=== PATIENT | female | born 1945 | race Caucasian/White ===

== ENCOUNTER 2018-02-20 12:25 | Outpatient (CLI) | payer MEDICARE | END 2018-02-20 12:26 | disposition home or self-care (01) | LOC: BICMAMMO 12:25 | PROVIDERS: ATTEND Nurse Practitioner | DX: Z12.31 Encounter for screening mammogram for malignant neoplasm of breast (principal); Z80.3 Family history of malignant neoplasm of breast; Z85.528 Personal history of other malignant neoplasm of kidney | CPT/HCPCS: 77063; 77067 ==

== ENCOUNTER 2019-03-19 12:41 | Outpatient (CLI) | payer MEDICARE ==
--- NOTE | 2019-03-19 14:04 | MMO ---
Bilateral MAMMO Bilat Screen DDI+CRIS. CLINICAL HISTORY: Patient is 73 years old and is seen for screening. The patient has the following family history of breast cancer: mother. The patient has a history of kidney cancer. VIEWS: The views performed were: bilateral craniocaudal with tomosynthesis and bilateral mediolateral oblique with tomosynthesis. FILMS COMPARED: The present examination has been compared to prior imaging studies performed at [facility] on 02/20/2018, and at [facility] on 02/05/2014, 11/05/2014 and 09/16/2016. MAMMOGRAM FINDINGS: There are scattered fibroglandular densities. There are stable benign appearing calcifications seen in both breasts. There are no suspicious masses, suspicious calcifications, or new areas of architectural distortion. IMPRESSION: THERE IS NO MAMMOGRAPHIC EVIDENCE OF MALIGNANCY. A ROUTINE FOLLOW-UP MAMMOGRAM IN 1 YEAR IS RECOMMENDED. THE RESULTS OF THIS EXAM WERE SENT TO THE PATIENT. ACR BI-RADS Category 2 - Benign finding MAMMOGRAPHY NOTE: 1. A negative mammogram report should not delay a biopsy if a dominant of clinically suspicious mass is present. 2. Approximately 10% to 15% of breast cancers are not detected by mammography. 3. Adenosis and dense breasts may obscure an underlying neoplasm. Reported by: LUCÍA AGUIRRE MD Electonically Signed: [id number]
== END 2019-03-19 12:42 | disposition home or self-care (01) ==
LOC: BICMAMMO 12:41
PROVIDERS: ATTEND Nurse Practitioner
DX: Z12.31 Encounter for screening mammogram for malignant neoplasm of breast (principal); Z80.3 Family history of malignant neoplasm of breast; Z85.528 Personal history of other malignant neoplasm of kidney
CPT/HCPCS: 77063; 77067

== ENCOUNTER 2020-08-06 17:46 | Inpatient (IN) | payer MEDICARE ==
--- NOTE | 2020-08-06 19:26 | PDOC.HHP ---
Hospitalist HPI - History of Present Illness Right leg wound History of Present Illness: This is a 74-year-old female patient history of diabetes mellitus , right renal cancer status post nephrectomy. CVA, coronary disease status post stent, pacemaker in place presenting as an Syncope, transferred from [place] [facility] on account of diabetic foot infection. . Patient notes that she had a wound on her right foot around the big toe and also on the inferior surface about 4 days ago. She does have diabetic neuropathy and therefore does not know exactly how long the wound was in place. She however had some malaise and general unwellness. She however denies any fever, chest pain or shortness of breath. She notes having noticed distention in her abdomen over the past week and reduced renal output over the past couple of days. Her friend came in to visit her and noted that she was weak and unwell and sent her to the [place] ED where she was treated for diabetic foot ulcer and started on Zosyn and vancomycin and given IV fluids and sent here. She has a history of coronary disease with stenting and stroke about 3 years ago. She also has a pacemaker which she notes she received because she passed out At presentation her vitals were BP 155/60, pulse 83, respiratory 20, temperature 98.2, saturating 100% on room air. Labs at [place] showed CBC generally unremarkable besides mild anemia of 11.7, CMP with creatinine of 1.45 from a baseline of 1.33, CRP 11. Hemoglobin A1c was 6.92 months ago. Hospitalist ROS - Review of Systems Constitutional: reports: weakness, malaise. denies: fever, chills, sweats ENT: denies: ear pain, ear discharge Respiratory: denies: cough, dry, shortness of breath, hemoptysis Cardiovascular: denies: chest pain, palpitations, orthopnea Gastrointestinal: denies: nausea, vomiting, abdominal pain, diarrhea Genitourinary: denies: dysuria, frequency, incontinence, hematuria Neurological: denies: weakness, numbness, incoordination Hospitalist History - Past Medical History PANTS [employer]ER: reports: CVA Other Medical History: Diabetes mellitus, CVA, pacemaker placement - Past Surgical History Other Surgical History: Pacemaker placement, right kidney surgery, stent - Family History Family History: reports: no pertinent history, cancer (Mother) - Social History Smoking Status: Former smoker Alcohol: reports: None - Exam General Appearance: awake alert General - other findings: In pleasant spirits. No acute distress Eye: PERRL, anicteric sclera ENT: normocephalic atraumatic, no oropharyngeal lesions Neck: supple, symmetric, no JVD Heart: RRR, no murmur, no gallops, no rubs Respiratory: CTAB, no wheezes, no rales, no ronchi Gastrointestinal: soft, non-tender, normal bowel sounds, distended (Distended/obese. No fluid thrill however) Extremities: no cyanosis, no clubbing, no edema Extremities - other findings: Nonexudative wound in the region of distal first metatarsal. Neurological: cranial nerve grossly intact, normal sensation to touch, no weakness, no focal deficits Psychiatric: normal affect, normal behavior, A&O x 3 Hospitalist Results - Labs Lab results: . Pending Hospitalist H&P A/P - Plan Plan: This is a 74-year-old female patient with a history of diabetes mellitus, right renal cancer, CVA, coronary disease status post stent who presents with diabetic ulcer on her right foot. Diabetic foot ulcer Started on Vanco and Zosyn We will continue on Zosyn X-ray of the foot Doppler ultrasound scan Wound care Abdominal distention Unclear etiology Given her history of renal cancer and extensive family history of cancers Abdominal scan rule out organomegaly/ascites. Diabetes mellitus Start correctional insulin Monitor glucose. Hypertension Start home medication when verified. Coronary disease Resume home medications once verified History of renal cancer Status post pacemaker secondary to syncope Keep monitoring. CKD Creatinine slightly bumped up from baseline Monitor BMP Gentle rehydration VT prophylaxisLovenox CODE STATUSfull code
--- NOTE | 2020-08-06 19:58 | PDOC.FMACP ---
Advance Care Planning - Note Summary: Advanced Care Planning was discussed. The diagnosis, prognosis and goals of care were discussed. Surrogate decision maker Amna Leyva. Patient is full code
[2020-08-06] MEDS ORDERED: Dextrose 5% in Water 1,000 ML IV PRN (20:25)
[2020-08-06] MEDS ORDERED: Dextrose 50% Abboject 50 ML SYRINGE SLOW IVP PRN (20:25)
[2020-08-06] MEDS ORDERED: HumaLOG 300 UNITS/3 ML VIAL SC PRN (20:25)
[2020-08-06] MEDS: Piperacillin/Tazobactam 4.5 GM in Sodium Chloride 0.9% 100 ML IVPB SCH (23:34)
[2020-08-06] MEDS: Sodium Chloride 0.9% 1,000 ML IV SCH (23:34)
[2020-08-07 03:07] VITALS: BMI 39.3
[2020-08-07 06:28] LABS: #Eosinphils 0.2 thou/uL (0.0-0.7); #Lymphocytes 0.7 thou/uL (1.20-3.40); #Monocytes 0.4 thou/uL (0.11-0.59); #Neutrophils 6.3 thou/uL (1.40-6.50); %Basophils 0.4 % (0.0-1.0); %Eosinophils 3.1 % (0.0-10.0); %Lymphocytes 8.8 % (21.0-51.0); %Monocytes 5.6 % (0.0-10.0); %Neutrophils 82.1 % (42.0-75.0); Hemoglobin 10.3 g/dL (12.0-16.0); Mean Corpuscular HGB CONC 31.6 g/dL (32.0-36.0); Mean Corpuscular Volume 85.4 fL (78.0-98.0); Mean Platelet Volume 7.6 fL (7.4-10.4); Platelet Count 278 thou/uL (130-400); RBC Distribution Width 12.7 % (11.5-14.5); Red Blood Cell (RBC) Count 3.83 mill/uL (4.20-5.40); White Blood Cell (WBC) Count 7.7 thou/uL (4.8-10.8)
[2020-08-07 06:43] LABS: Anion Gap 15 mmol/L (10-20); BUN (Urea Nitrogen) 32 mg/dL (9.8-20.1); Calc. Creatinine Clearance 55 mL/min (70-130); Calcium 8.8 mg/dL (7.8-10.44); Carbon Dioxide 23 mmol/L (23-31); Chloride 107 mmol/L (98-107); Glucose 169 mg/dL (83-110); Sodium 141 mmol/L (136-145)
--- NOTE | 2020-08-07 08:30 | ULT ---
COMPLETE ABDOMEN ULTRASOUND: Date; 08/07/2020 INDICATION: History of abdominal distention, ascites, and organomegaly. COMPARISON: Prior CT abdomen with contrast dated 08/03/2018. FINDINGS: Overlying bowel gas slightly limits the exam. The visualized aspects of the aorta and IVC appear with in normal limits. The visualized pancreas appears within normal limits. No definite focal hepatic les ion is evident. There are numerous gallstones within the gallbladder. Right kidney measures 10.8 x 5. 3 x 4.7 cm. Right renal cortical thickness is 1.2 cm. Small cyst involving the inferior pole of the r ight kidney measuring 1.1 cm. The left kidney measures approximately 13.5 x 6.5 x 4.6 cm. There is a 1.5 cm cyst involving the inferior pole of the left kidney. Left renal cortical echogenicity is 1.1 c m. There is a 2.7 x 3.1 x 2.4 cm hypoechoic structure seen within the renal sinus, incompletely deja cterized on the current exam. The spleen measures 9.5 cm. The common bile duct measures 3.0 mm. No fr ee fluid is evident. IMPRESSION: 1. Cholelithiasis without sonographic evidence of acute cholecystitis. 2. No ascites present. 3. Hypoechoic structure seen within the renal sinus of the left mid kidney is incompletely character ized. Follow-up CT of the abdomen utilizing a renal mass protocol with and without contrast is recomm ended. Bilateral renal cysts also seen bilaterally. 4. Some limitations of exam due to overlying bowel gas. POS: PINO
[2020-08-07] MEDS: Enoxaparin Sodium 40 MG/0.4 ML SYRINGE SC SCH ×2 (09:20→12:20)
[2020-08-07] MEDS: Lisinopril 5 MG TAB PO SCH (09:30)
[2020-08-07] MEDS: Rosuvastatin 10 MG TAB PO SCH (09:30)
[2020-08-07] MEDS: Aspirin 81 mg Enteric Coated Tablet PO SCH (09:30)
[2020-08-07] MEDS: Piperacillin/Tazobactam 4.5 GM in Sodium Chloride 0.9% 100 ML IVPB SCH ×3 (09:30→23:28)
[2020-08-07] MEDS: Sodium Chloride 0.9% 1,000 ML IV SCH ×3 (09:33→23:30)
--- NOTE | 2020-08-07 11:47 | CT ---
Exam: Abdomen CT with and without contrast HISTORY: Hypoechoic mass noted in the left kidney. COMPARISON: Abdomen CT 08/03/2018 Correlation: Abdomen ultrasound 08/07/2020 TECHNIQUE: Abdomen CT is performed with and without contrast following urogram protocol. Coronal refo rmatted images are submitted for interpretation FINDINGS: Lung bases: Minimal dependent atelectatic change. Heart: Normal heart size. No significant pericardial fluid Aorta: Normal caliber. No periaortic fat stranding. Scattered atherosclerosis. Liver: Appropriate enhancement. No enhancing masses. Spleen: Appropriate enhancement Pancreas: Appropriate enhancement Adrenal glands: Left adrenal adenoma measuring 1 cm noted. Attenuation coefficient of 7 Hounsfield un its on the noncontrast images. Unremarkable right adrenal gland. Lymph nodes: No gastrohepatic, retrocrural or periportal lymphadenopathy Portal vein: Patent Gallbladder: CT evidence of cholelithiasis, without evidence of cholecystitis. Kidneys: Noncontrast: No evidence of hydronephrosis. There is scarring of the right kidney. There is a nonobst ructing calculus in the lower pole the right kidney measuring 0.6 cm. Contrast: Symmetric enhancement on the arterial phase images. There is no evidence of a enhancing mas s within the left or right renal cortex. Delayed: Symmetric excretion into a decompressed intrarenal collecting system. Visualized ureters are unremarkable. 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 The hypoechoic focus noted on the recent ultrasound likely represents renal parenchyma extending into the pelvis secondary to duplication of the intrarenal collecting system. Mesentery: No mass, nephropathy, free air or free fluid Alimentary canal: Limited evaluation of the alimentary canal due to technique. No evidence of bowel o bstruction. No lytic or blastic lesions in the osseous structures. Vacuum disc phenomenon is noted at multiple le vels. IMPRESSION: 1. No evidence of obstructive uropathy 2. No evidence of a left or right renal mass. 3. 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 There is extension of renal co rtex into the pelvis secondary to duplication which likely represents the finding noted on recent ultrasound.
[2020-08-07 12:51] LABS: SARS-CoV-2 MS2 Positive; SARS-CoV-2 N Gene Negative; SARS-CoV-2 S Gene Negative; SARS-CoV-2 by NAA Not Detected (NotDetected); SARS-CoV-2 orf1ab Negative
--- NOTE | 2020-08-07 13:02 | PDOC.HOSPP ---
- Objective Vital Signs & Weight: Vital Signs (12 hours) Temp Pulse Resp BP Pulse Ox 08/07/20 11:38 98.1 F 84 16 139/64 96 08/07/20 09:30 83 08/07/20 07:29 98.5 F 83 16 140/65 93 L Weight Weight 229 lb 4.8 oz Result Diagrams: 08/07/20 06:14 08/07/20 06:14 Additional Labs: Accuchecks 08/07/20 08/07/20 11:44 01:09 POC Glucose 125 H 182 H Hospitalist ROS - Medication Medications: Active Medications Generic Name Dose Route Start Last Admin Trade Name Freq PRN Reason Stop Dose Admin Aspirin 81 mg 08/07/20 09:00 08/07/20 09:30 Aspirin 81 Mg Enteric Coated Tablet PO 81 mg DAILY MOOK Administration Enoxaparin Sodium 40 mg 08/07/20 09:00 08/07/20 12:20 Enoxaparin Sodium 40 Mg/0.4 Ml Syringe SC Not Given 0900 MOOK Sodium Chloride 1,000 mls @ 75 mls/hr 08/06/20 20:30 08/07/20 09:33 Normal Saline 0.9% IV Not Given .[id number] MOOK Piperacillin Sod/Tazobactam 100 mls @ 200 mls/hr 08/06/20 23:59 08/07/20 09:30 Sod 4.5 gm/ Sodium Chloride IVPB 100 mls 0800,1600,2359 MOOK Administration Lisinopril 5 mg 08/07/20 09:00 08/07/20 09:30 Lisinopril 5 Mg Tab PO 5 mg DAILY MOOK Administration Rosuvastatin Calcium 10 mg 08/07/20 09:00 08/07/20 09:30 Rosuvastatin 10 Mg Tab PO 10 mg DAILY MOOK Administration Hosp A/P - Plan 74-year-old female patient with a history of diabetes mellitus, right renal cancer, CVA, coronary disease status post stent who presents with diabetic ulcer on her right foot. Diabetic foot ulcer Started on Vanco and Zosyn We will continue on Zosyn X-ray of the foot -already. MRI contrast given her pacemaker Abdominal distention Unclear etiology Given her history of renal cancer and extensive family history of cancers Abdominal scan rule out organomegaly/ascites. Diabetes mellitus Start correctional insulin Monitor glucose. Hypertension Start home medication when verified. Coronary disease -Stable History of renal cancer -Patient had a small surgical resection of the renal cancer roughly 3 years ago in [place] -No follow-up beyond that and she does not remember whether it is right or left and no chemo Radiologist recommended to follow-up on the CT abdominal findings. A CT renal ordered. Status post pacemaker secondary to syncope Keep monitoring. CKD Creatinine slightly bumped up from baseline Monitor BMP Gentle rehydration Covid negative
[2020-08-07] MEDS ORDERED: Iopamidol-370 76% 500 ML 1 ML ONE (13:25)
--- NOTE | 2020-08-07 13:36 | RAD ---
XR Foot Rt 3 View STANDARD INDICATION: History of foot abscess COMPARISON: August 06, 2020 FINDINGS: Bones: There is diffuse osteopenia. Joints: There is scattered osteoarthrosis of the forefoot and midfoot. This is greatest at the great toe MTP joint where there is moderate degenerative change. There is stable periarticular erosion involving the dorsal medial aspect of the great toe metatarsal head. Lisfranc alignment: Lisfranc alignment appears within normal limits. Soft tissues: There is diffuse soft tissue swelling of the right foot and ankle IMPRESSION: No acute osseous abnormality.
[2020-08-08] MEDS: Piperacillin/Tazobactam 4.5 GM in Sodium Chloride 0.9% 100 ML IVPB SCH ×3 (08:32→23:49)
[2020-08-08] MEDS: Sodium Chloride 0.9% 1,000 ML IV SCH (08:33)
[2020-08-08] MEDS: Lisinopril 5 MG TAB PO SCH (08:36)
[2020-08-08] MEDS: Enoxaparin Sodium 40 MG/0.4 ML SYRINGE SC SCH (08:36)
[2020-08-08] MEDS: Aspirin 81 mg Enteric Coated Tablet PO SCH (08:36)
[2020-08-08] MEDS: Rosuvastatin 10 MG TAB PO SCH (08:37)
[2020-08-08 10:03] LABS: Anion Gap 14 mmol/L (10-20); BUN (Urea Nitrogen) 21 mg/dL (9.8-20.1); Calc. Creatinine Clearance 62 mL/min (70-130); Calcium 8.4 mg/dL (7.8-10.44); Carbon Dioxide 22 mmol/L (23-31); Chloride 107 mmol/L (98-107); Glucose 202 mg/dL (83-110); Potassium 4.2 mmol/L (3.5-5.1); Sodium 139 mmol/L (136-145)
--- NOTE | 2020-08-08 14:50 | PDOC.HOSPP ---
- Subjective Encounter Date: 08/08/20 Encounter Time: 13:10 Subjective: Patient doing well will discontinue her fluid. Wound care has been addressed. Because of the pacemaker placement unclear whether she would be able to get the MRI. - Objective Vital Signs & Weight: Vital Signs (12 hours) Temp Pulse Pulse Resp BP BP BP 08/08/20 10:53 89 144/66 H 08/08/20 08:36 88 147/67 H 08/08/20 08:00 08/08/20 06:50 99.4 F 88 16 147/67 H Pulse Ox 08/08/20 10:53 08/08/20 08:36 08/08/20 08:00 97 08/08/20 06:50 97 Weight Admit Weight 229 lb 4.8 oz Weight 229 lb 4.8 oz I&O: 08/07/20 08/08/20 08/09/20 06:59 06:59 06:59 Intake Total 2080 Output Total 400 Balance 1680 Result Diagrams: 08/07/20 06:14 08/08/20 09:20 Additional Labs: Accuchecks 08/08/20 08/08/20 08/07/20 11:44 05:43 15:57 POC Glucose 145 H 133 H 142 H Hospitalist ROS - Medication Medications: Active Medications Generic Name Dose Route Start Last Admin Trade Name Allq PRN Reason Stop Dose Admin Aspirin 81 mg 08/07/20 09:00 08/08/20 08:36 Aspirin 81 Mg Enteric Coated Tablet PO 81 mg DAILY MOOK Administration Enoxaparin Sodium 40 mg 08/07/20 09:00 08/08/20 08:36 Enoxaparin Sodium 40 Mg/0.4 Ml Syringe SC 40 mg 0900 MOOK Administration Piperacillin Sod/Tazobactam 100 mls @ 200 mls/hr 08/06/20 23:59 08/08/20 08:32 Sod 4.5 gm/ Sodium Chloride IVPB 100 mls 0800,1600,2359 MOOK Administration Rosuvastatin Calcium 10 mg 08/07/20 09:00 08/08/20 08:37 Rosuvastatin 10 Mg Tab PO 10 mg DAILY MOOK Administration - Exam General Appearance: NAD, awake alert Eye: PERRL ENT: normocephalic atraumatic Neck: supple Heart: RRR, normal peripheral pulses Respiratory: CTAB, normal chest expansion Gastrointestinal: soft Extremities: 1+ LE edema Neurological: no focal deficits Hosp A/P - Plan 74-year-old female patient with a history of diabetes mellitus, right renal c ancer, CVA, coronary disease status post stent who presents with diabetic ulcer on her right foot. Diabetic foot ulcer Started on Vanco and Zosyn We will continue on Zosyn X-ray of the foot -already. MRI contra given her pacemaker Abdominal distention Unclear etiology Given her history of renal cancer and extensive family history of cancers Abdominal scan rule out organomegaly/ascites. Diabetes mellitus Start correctional insulin Monitor glucose. Hypertension Start home medication when verified. Coronary disease -Stable History of renal cancer -Patient had a small surgical resection of the renal cancer roughly 3 years ago in [place] -No follow-up beyond that and she does not remember whether it is right or left and no chemo Radiologist recommended to follow-up on the CT abdominal findings. -Follow-up CT abdomen does not show any evidence for renal cancer or cancer. Status post pacemaker secondary to syncope Keep monitoring. CKD Creatinine slightly bumped up from baseline Monitor BMP Gentle rehydration Covid negative Follow-up on the sed rate and CRP Pursue on MRI evaluation to make sure she does not have osteomyelitis given the underlying comorbidities of diabetes and chronic kidney disease. Wound care follow-up Patient has cholelithiasis without evidence of acute cholecystitis She has no urgent clinical indication for surgical evaluation. She has infrequent abdominal discomfort. I will follow up with the LFT. Disposition-patient lives alone it appears she should be able to go back to her baseline functional status. I do not feel she needs any physical therapy evaluation at this point; she would benefit with the short home nursing help.
[2020-08-08 19:18] LABS: ALT (SGPT) 14 U/L (8-55); AST (SGOT) 23 U/L (5-34); Albumin 3.5 g/dL (3.4-4.8); Alkaline Phosphatase 76 U/L (40-110); Bilirubin, Direct 0.1 mg/dL (0.1-0.3); Bilirubin, Total 0.2 mg/dL (0.2-1.2); Protein, Total 6.5 g/dL (6.0-8.3)
[2020-08-09] MEDS: Piperacillin/Tazobactam 4.5 GM in Sodium Chloride 0.9% 100 ML IVPB SCH ×3 (08:26→23:22)
[2020-08-09] MEDS: Amlodipine 10 MG TAB PO SCH (08:26)
[2020-08-09] MEDS: Rosuvastatin 10 MG TAB PO SCH (08:26)
[2020-08-09] MEDS: Enoxaparin Sodium 40 MG/0.4 ML SYRINGE SC SCH (08:26)
[2020-08-09] MEDS: Aspirin 81 mg Enteric Coated Tablet PO SCH (08:26)
--- NOTE | 2020-08-09 12:43 | PDOC.HOSPP ---
- Subjective Encounter Date: 08/09/20 Encounter Time: 11:00 Subjective: Patient doing well she has no acuity at this time. Waiting for the wound care to reevaluate her. MRI pending C-reactive protein and gait are high. - Objective Vital Signs & Weight: Vital Signs (12 hours) Temp Pulse Resp BP BP Pulse Ox 08/09/20 08:26 69 133/60 08/09/20 07:42 98.5 F 69 16 133/60 95 Weight Admit Weight 229 lb 4.8 oz Weight 229 lb 4.8 oz I&O: 08/08/20 08/09/20 08/10/20 06:59 06:59 06:59 Intake Total 2080 950 Output Total 400 800 Balance 1680 150 Result Diagrams: 08/07/20 06:14 08/08/20 09:20 Additional Labs: Accuchecks 08/09/20 08/09/20 08/09/20 12:04 11:23 05:35 POC Glucose 152 H 192 H 135 H 08/08/20 08/08/20 20:38 16:23 POC Glucose 131 H 145 H Hospitalist ROS - Medication Medications: Active Medications Generic Name Dose Route Start Last Admin Trade Name Freq PRN Reason Stop Dose Admin Amlodipine Besylate 10 mg 08/09/20 09:00 08/09/20 08:26 Amlodipine 10 Mg Tab PO 10 mg DAILY MOOK Administration Aspirin 81 mg 08/07/20 09:00 08/09/20 08:26 Aspirin 81 Mg Enteric Coated Tablet PO 81 mg DAILY MOOK Administration Enoxaparin Sodium 40 mg 08/07/20 09:00 08/09/20 08:26 Enoxaparin Sodium 40 Mg/0.4 Ml Syringe SC 40 mg 0900 MOOK Administration Piperacillin Sod/Tazobactam 100 mls @ 200 mls/hr 08/06/20 23:59 08/09/20 08:26 Sod 4.5 gm/ Sodium Chloride IVPB 100 mls 0800,1600,2359 MOOK Administration Rosuvastatin Calcium 10 mg 08/07/20 09:00 08/09/20 08:26 Rosuvastatin 10 Mg Tab PO 10 mg DAILY MOOK Administration - Exam General Appearance: NAD, awake alert Eye: PERRL ENT: normocephalic atraumatic Neck: supple Heart: RRR Respiratory: CTAB, normal chest expansion Gastrointestinal: soft Neurological: cranial nerve grossly intact, no focal deficits, no new deficit Psychiatric: A&O x 3 Hosp A/P - Plan 74-year-old female patient with a history of diabetes mellitus, right renal cancer, CVA, coronary disease status post stent who presents with diabetic ulcer on her right foot. Diabetic foot ulcer Started on Vanco and Zosyn We will continue on Zosyn X-ray of the foot -already. MRI contra given her pacemaker Abdominal distention Unclear etiology Given her history of renal cancer and extensive family history of cancers Abdominal scan rule out organomegaly/ascites. Diabetes mellitus Start correctional insulin Monitor glucose. Hypertension Start home medication when verified. Coronary disease -Stable History of renal cancer -Patient had a small surgical resection of the renal cancer roughly 3 years ago in [place] -No follow-up beyond that and she does not remember whether it is right or left and no chemo Radiologist recommended to follow-up on the CT abdominal findings. -Follow-up CT abdomen does not show any evidence for renal cancer or cancer. Status post pacemaker secondary to syncope Keep monitoring. CKD Creatinine slightly bumped up from baseline Monitor BMP Gentle rehydration Covid negative Follow-up on the sed rate and CRP Pursue on MRI evaluation to make sure she does not have osteomyelitis given the underlying comorbidities of diabetes and chronic kidney disease. Wound care follow-up Patient has cholelithiasis without evidence of acute cholecystitis She has no urgent clinical indication for surgical evaluation. She has infrequent abdominal discomfort. I will follow up with the LFT. Disposition-patient lives alone it appears she should be able to go back to her baseline functional status. I do not feel she needs any physical therapy evaluation at this point; she would benefit with the short home nursing help. Right foot x-ray showed soft tissue swelling on the right foot and ankle and no acute osseous abnormality However inflammatory markers are high MRI is pending possibly done tomorrow If wound care revisits her tomorrow then possibly discharge after MRI report reviewed. She may need some home health as she lives alone.
[2020-08-09] MEDS ORDERED: Piperacillin/Tazobactam 4.5 GM VIAL ONE (16:17)
[2020-08-10] MEDS: Piperacillin/Tazobactam 4.5 GM in Sodium Chloride 0.9% 100 ML IVPB SCH ×2 (08:22→16:29)
[2020-08-10] MEDS: Rosuvastatin 10 MG TAB PO SCH (08:23)
[2020-08-10] MEDS: Amlodipine 10 MG TAB PO SCH (08:23)
[2020-08-10] MEDS: Aspirin 81 mg Enteric Coated Tablet PO SCH (08:23)
[2020-08-10] MEDS: Enoxaparin Sodium 40 MG/0.4 ML SYRINGE SC SCH (08:24)
--- NOTE | 2020-08-10 13:56 | PDOC.DS.DS ---
Provider - Provider Date of Admission: 08/06/20 18:46 Admitting Provider: Nisha Stein MD Primary Care Physician: Ida Knapp, MSN, [facility]- Course - Hospital Course Hospital Course: 74-year-old female patient with a history of diabetes mellitus, right renal cancer, CVA, coronary disease status post stent who presents with diabetic ulcer on her right foot. Diabetic foot ulcer Right foot x-ray showed soft tissue swelling on the right foot and ankle and no acute osseous abnormality Status post Vanco and Zosyn -No MRI can be done due to her pacemaker Diabetes mellitus Continued with home regimen History of renal cancer -Patient had a small surgical resection of the renal cancer roughly 3 years ago in [place] -No follow-up beyond that and she does not remember whether it is right or left and no chemo Radiologist recommended to follow-up on the CT abdominal findings. -Follow-up CT abdomen does not show any evidence for renal cancer or cancer. Status post pacemaker secondary to syncope CKD--stable Covid negative Patient has cholelithiasis without evidence of acute cholecystitis She has no urgent clinical indication for surgical evaluation. She has infrequent abdominal discomfort. LFTs are in the normal range. Disposition-patient lives alone it appears she should be able to go back to her baseline functional status. Home health for wound care has been arranged. Patient will be discharged hemodynamically in stable condition today. Discharge time over 30 minutes Resuscitation Status: 08/06/20 20:00 Resuscitation Status Routine Resuscitation Status: FULL: Full Resuscitation - Labs Lab Results: 08/07/20 06:14 08/08/20 09:20 Abnormal Lab Results - Last 48 hrs 08/08/20 18:41: C-Reactive Protein 3.18 H 08/08/20 18:41: ESR Westergren 90 H - Physical Exam Vitals: Vital Signs (12 hours) Temp Pulse Resp BP BP Pulse Ox 08/10/20 08:23 75 131/64 08/10/20 07:47 96 08/10/20 07:25 97.8 F 75 18 131/64 96 Weight Admit Weight 229 lb 4.8 oz Weight 229 lb 4.8 oz Physical Exam: The patient was seen and examined on the day of discharge. Patient seen this morning. She cannot get MRI of her foot because of the pacemaker placement. She is calm doing well. Wound care visited her this morning and they recommended home wound care visit would be sufficient. She will be discharged home. She is back at her baseline functional status. Plan - Discharge Medications Prescriptions: Doxycycline [Vibramycin] 100 mg PO Q12HR 14 Days #28 cap Home Medications: Medication Instructions Recorded Confirmed Type Bimatoprost [Lumigan 0.01% Ophth 1 drop EA EYE HS 01/05/17 08/07/20 History Soln] Lisinopril [Zestril] 5 mg PO DAILY #30 tab 01/06/17 08/07/20 Rx Rosuvastatin [Crestor] 10 mg PO DAILY #30 tab 01/06/17 08/07/20 Rx Acetaminophen [Tylenol Arthritis] 650 mg PO BID 08/07/20 08/07/20 History Aspirin 81 mg PO QPM 08/07/20 08/07/20 History Cholecalciferol (Vitamin D3) 50 mcg PO QAM 08/07/20 08/07/20 History [Vitamin D3] Furosemide 20 mg PO QAM 08/07/20 08/07/20 History L Gasseri/B Bifidum/B Longum 1 cap PO QAM 08/07/20 08/07/20 History [[facility]] Linagliptin [Tradjenta] 5 mg PO QAM 08/07/20 08/07/20 History Oabuxkkp-Bzqcvg-Bvexnaup [Maxitrol 1 drop EA EYE QPM 08/07/20 08/07/20 History Ophth Susp] Ticagrelor [Brilinta] 90 mg PO QAM 08/07/20 08/07/20 History Timolol Maleate/PF [Timolol 1 drop EA EYE QAM 08/07/20 08/07/20 History Maleate 0.5% Eye Drop] pyridOXINE [Vitamin B 6] 100 mg PO QAM 08/07/20 08/07/20 History Doxycycline [Vibramycin] 100 mg PO Q12HR 14 Days #28 cap 08/10/20 Rx Allergies: adhesive Allergy (Verified 08/07/20 02:14) No Known Drug Allergies Allergy (Verified 08/07/20 02:14) - Discharge Instructions Discharge Instructions:: Follow-up with PCP in 1 week Activity:: Activity as Tolerated Nourishment:: Regular Diet - Follow up Plan Referrals: Ida Knapp, MSN [employer] SAL[employer] ADMINISTRATOR [facility] [Primary Care Provider] - Disposition: HOME Quality - Care Measures CORE MEASURES:: N/A
[2020-08-10] MEDS ORDERED: Doxycycline 100 MG CAP PO SCH (14:00)
[2020-08-10 16:39] LABS: Anion Gap 24 mmol/L (10-20); BUN (Urea Nitrogen) 14 mg/dL (9.8-20.1); Calc. Creatinine Clearance 62 mL/min (70-130); Carbon Dioxide 8 mmol/L (23-31); Chloride 115 mmol/L (98-107); Glucose 153 mg/dL (83-110); Potassium 5.7 mmol/L (3.5-5.1); Sodium 141 mmol/L (136-145)
[2020-08-10] MEDS ORDERED: Sodium Bicarbonate Tab 325 MG TAB PO SCH ×2 (17:00→21:00)
[2020-08-10 17:51] LABS: Anion Gap 15 mmol/L (10-20); BUN (Urea Nitrogen) 18 mg/dL (9.8-20.1); Calc. Creatinine Clearance 62 mL/min (70-130); Calcium 9.2 mg/dL (7.8-10.44); Carbon Dioxide 24 mmol/L (23-31); Chloride 106 mmol/L (98-107); Glucose 133 mg/dL (83-110); Potassium 4.4 mmol/L (3.5-5.1); Sodium 141 mmol/L (136-145)
[2020-08-11 04:46] LABS: Anion Gap 14 mmol/L (10-20); BUN (Urea Nitrogen) 17 mg/dL (9.8-20.1); Calc. Creatinine Clearance 77 mL/min (70-130); Carbon Dioxide 24 mmol/L (23-31); Chloride 107 mmol/L (98-107); Glucose 139 mg/dL (83-110); Potassium 4.2 mmol/L (3.5-5.1); Sodium 141 mmol/L (136-145)
[2020-08-11 08:17] VITALS: BP 143/62; TEMP 98.2
[2020-08-11] MEDS: Rosuvastatin 10 MG TAB PO SCH (09:32)
[2020-08-11] MEDS: Enoxaparin Sodium 40 MG/0.4 ML SYRINGE SC SCH (09:32)
[2020-08-11] MEDS: Aspirin 81 mg Enteric Coated Tablet PO SCH (09:32)
[2020-08-11] MEDS: Amlodipine 10 MG TAB PO SCH (09:32)
--- NOTE | 2020-08-11 16:41 | PDOC.BPN ---
- Brief Progress Note Encounter Date: 08/10/20 Patient discharge was on hold due to the electrolyte panel came back significantly abnormal with a high potassium as well as bicarb of 8. No clear etiology or trigger for that. Repeating the panel and holding her discharge. Please note that discharge summary is done
--- NOTE | 2020-08-13 02:55 | PQF ---
CLINICAL DOCUMENTATION CLARIFICATION FORM: Dear :Hadley Magana Date / Time: 08/13/2020252 Please exercise your independent, professional judgment in responding to the clarification form. Clinical indicators are provided on the bottom of this form for your review Please check appropriate box(s): [ ] Cellulitis due to Diabetes [ ] Cellulitis related to Abscess [ ] No Cellulitis [ ] Other diagnosis, please specify [ x] Unable to determine Physician Signature: Date/Time: For continuity of documentation, please document condition throughout progress notes and discharge summary. Thank You. To be completed by CDI/Coding staff for physician review: Present Clinical Indicators - Signs / Symptoms / Labs Results and Location in Medical Record [x] WBC 7.7, Neutrophils 82.1, Glucose 169, POC Glucose 182 Laboratory 08/06 [x] BP 160/73, Pulse 82, Resp 18, Temp 98.3 Vital signs 08/06 [x] Abscess on right medial foot over first MTP ED notes p6 08/06 [x] Cellulitis, diabetic foot infection ED notes p6 08/06 [x] Noted to had a wound on her right foot H&P p1 08/06 Dr Vidales [x] DM foot ulcer H&P p3 08/06 Dr Vidales Present Risk Factors Results and Location in Medical Record [x] 74 year-old Female H&P p1 08/06 Dr Vidales [x] DM H&P p3 08/06 Dr Vidales [x] CKD H&P p3 08/06 Dr Vidales [x] HTN H&P p3 08/06 Dr Vidales [x] Former Smoker H&P p1 08/06 Dr Vidales Present Treatments Results and Location in Medical Record [x] Vibramycin 100 mg oral OCT 23 [x] IV Zosyn 4.5 gm OCT 23 [x] Insulin Human Lispro OCT 23 [x] IVF NS 1L OCT 23 CDS/Wood Box Maker Signature: Carmencita Yamile Carmella Phone #: [phone] Date/Time: 08/13/2020252 This is a permanent part of the Medical Record [facility]
== END 2020-08-11 10:15 | disposition home health service (06) | DRG 639 ==
LOC: ERS 17:46 → ONC 18:46
PROVIDERS: ADMIT Internal Medicine; ATTEND Internal Medicine
DX: E11.621 Type 2 diabetes mellitus with foot ulcer (principal); Z20.828 Contact with and (suspected) exposure to other viral communicable diseases; L97.519 Non-pressure chronic ulcer of other part of right foot with unspecified severity; I25.10 Atherosclerotic heart disease of native coronary artery without angina pectoris; K80.20 Calculus of gallbladder without cholecystitis without obstruction; N18.9 Chronic kidney disease, unspecified; E11.65 Type 2 diabetes mellitus with hyperglycemia; E11.40 Type 2 diabetes mellitus with diabetic neuropathy, unspecified; I12.9 Hypertensive chronic kidney disease with stage 1 through stage 4 chronic kidney disease, or unspecified chronic kidney disease; E11.22 Type 2 diabetes mellitus with diabetic chronic kidney disease; N28.9 Disorder of kidney and ureter, unspecified; Z90.5 Acquired absence of kidney; Z95.0 Presence of cardiac pacemaker; Z79.84 Long term (current) use of oral hypoglycemic drugs; Z85.528 Personal history of other malignant neoplasm of kidney; Z86.73 Personal history of transient ischemic attack (TIA), and cerebral infarction without residual deficits; Z95.5 Presence of coronary angioplasty implant and graft; Z87.891 Personal history of nicotine dependence; Z79.899 Other long term (current) drug therapy; Z79.82 Long term (current) use of aspirin
CPT/HCPCS: 36415; 36416; 74170; 80048; 80076; 85025; 85652; 86140; 87635; 93975; J1650; J2543; J3490; Q9967; U0003

== ENCOUNTER 2022-07-01 13:55 | Inpatient (IN) | payer MEDICARE ==
[2022-07-01] MEDS ORDERED: Ondansetron PF 4 MG/2 ML Vial IVP PRN (16:58)
[2022-07-01] MEDS ORDERED: Dextrose 50% Abboject 50 ML SYRINGE SLOW IVP PRN (16:58)
[2022-07-01] MEDS ORDERED: Dextrose 5% in Water 1,000 ML IV PRN (16:58)
[2022-07-01] MEDS ORDERED: Insulin Regular 300 UNITS/3 ML VIAL SC PRN (16:58)
[2022-07-01] MEDS ORDERED: TETANUS, DIPHTHERIA TOX,ADULT (TDVAX) 0.5 ML VIAL IM ONE (16:58)
[2022-07-01] MEDS ORDERED: hydrALAZINE 20 MG/ML VIAL SLOW IVP PRN (16:58)
[2022-07-01] MEDS ORDERED: Cyclobenzaprine 10 MG TAB PO PRN (17:03)
[2022-07-01] MEDS ORDERED: traMADol HCl 50 MG TAB PO PRN (17:03)
[2022-07-01 17:04] VITALS: BMI 38.6
[2022-07-01] MEDS ORDERED: Morphine 4 MG/ML VIAL SLOW IVP PRN (17:04)
[2022-07-01] MEDS: traMADol HCl 50 MG TAB PO SCH ×2 (17:44→23:08)
[2022-07-01] MEDS: Acetaminophen 500 MG TAB PO SCH ×2 (17:44→23:09)
[2022-07-01] MEDS ORDERED: Melatonin 3 MG TAB PO SCH (21:00)
[2022-07-01] MEDS ORDERED: Latanoprost 0.005% Ophth Soln 2.5 ml Bottle EA EYE SCH (21:00)
[2022-07-01] MEDS ORDERED: Loratadine 10 MG TAB PO SCH (21:00)
[2022-07-01] MEDS ORDERED: Rosuvastatin 10 MG TAB PO SCH (21:00)
[2022-07-01] MEDS: Brimonidine Tartrate 0.2% Ophth Soln 5 ml Bottle EA EYE SCH (21:56)
[2022-07-01] MEDS: Senokot S 8.6-50 MG TAB PO SCH (21:57)
[2022-07-01] MEDS: Gabapentin 100 MG CAP PO SCH (21:58)
[2022-07-01] MEDS: Famotidine 20 MG TAB PO SCH (21:58)
[2022-07-01] MEDS: Timolol 0.5% Ophth Soln 5 ml Bottle EA EYE SCH (23:10)
[2022-07-02] MEDS: Acetaminophen 500 MG TAB PO SCH ×2 (05:41→11:12)
[2022-07-02] MEDS: traMADol HCl 50 MG TAB PO SCH ×2 (05:42→11:12)
[2022-07-02 06:36] LABS: #Eosinphils 0.2 thou/uL (0.0-0.7); #Lymphocytes 1.9 thou/uL (1.20-3.40); #Monocytes 0.6 thou/uL (0.11-0.59); #Neutrophils 5.3 thou/uL (1.40-6.50); %Basophils 0.5 % (0.0-1.0); %Eosinophils 2.2 % (0.0-10.0); %Lymphocytes 23.5 % (21.0-51.0); %Neutrophils 65.9 % (42.0-75.0); Mean Corpuscular Hemoglobin 28.4 pg (27.0-31.0); Mean Corpuscular Volume 91.5 fl (78.0-98.0); Mean Platelet Volume 7.7 fL (7.4-10.4); Platelet Count 236 10x3/uL (130-400); RBC Distribution Width 11.8 % (11.5-14.5); Red Blood Cell (RBC) Count 4.24 mill/uL (4.20-5.40)
[2022-07-02 07:02] LABS: Anion Gap 12 mmol/L (10-20); BUN (Urea Nitrogen) 29 mg/dL (9.8-20.1); Calc. Creatinine Clearance 62 mL/min (70-130); Calcium 9.3 mg/dL (7.8-10.44); Carbon Dioxide 24 mmol/L (23-31); Chloride 105 mmol/L (98-107); Estimated GFR 46; Glucose 123 mg/dL (83-110); Magnesium 2.1 mg/dL (1.6-2.6); Phosphorus 4.5 mg/dL (2.3-4.7); Potassium 4.1 mmol/L (3.5-5.1); Sodium 137 mmol/L (136-145)
[2022-07-02] MEDS: Brimonidine Tartrate 0.2% Ophth Soln 5 ml Bottle EA EYE SCH (08:12)
[2022-07-02] MEDS: Gabapentin 100 MG CAP PO SCH ×2 (08:14→14:44)
[2022-07-02] MEDS: Famotidine 20 MG TAB PO SCH (08:16)
[2022-07-02] MEDS: Senokot S 8.6-50 MG TAB PO SCH (08:16)
[2022-07-02] MEDS: Timolol 0.5% Ophth Soln 5 ml Bottle EA EYE SCH (08:17)
[2022-07-02] MEDS ORDERED: Furosemide 20 MG TAB PO SCH (09:00)
[2022-07-02] MEDS ORDERED: Losartan 25 MG TAB PO SCH (09:00)
[2022-07-02] MEDS ORDERED: Polyethylene Glycol 3350 17 GM Packet PO SCH (09:00)
[2022-07-02] MEDS ORDERED: Alogliptin 25 MG TAB PO SCH (09:00)
[2022-07-02 15:29] LABS: SARS-CoV-2 NAA Rapid Test Not Detected (NotDetected)
[2022-07-02 16:30] VITALS: BP 120/66; TEMP 98.1
[2022-07-02] MEDS ORDERED: Aspirin Chewable 81 MG TAB PO SCH (21:00)
[2022-07-02] MEDS ORDERED: Clopidogrel Bisulfate 75 MG TAB PO SCH (21:00)
== END 2022-07-02 17:00 | DRG 185 ==
LOC: SJJU 13:55
PROVIDERS: ADMIT Surgery; ATTEND Surgery
DX: S22.41XA Multiple fractures of ribs, right side, initial encounter for closed fracture (principal); G89.11 Acute pain due to trauma; I12.9 Hypertensive chronic kidney disease with stage 1 through stage 4 chronic kidney disease, or unspecified chronic kidney disease; E11.22 Type 2 diabetes mellitus with diabetic chronic kidney disease; N18.9 Chronic kidney disease, unspecified; Z80.3 Family history of malignant neoplasm of breast; Z85.53 Personal history of malignant neoplasm of renal pelvis; Z90.5 Acquired absence of kidney; Z79.82 Long term (current) use of aspirin; Z86.73 Personal history of transient ischemic attack (TIA), and cerebral infarction without residual deficits; Z95.5 Presence of coronary angioplasty implant and graft; Z95.0 Presence of cardiac pacemaker; Z20.822 Contact with and (suspected) exposure to COVID-19
CPT/HCPCS: 36415; 36416; 71045; 80048; 83735; 84100; 85025; 90714; 94640; J7620; U0002

== ENCOUNTER 2023-11-03 12:37 | Outpatient (CLI) | payer MEDICARE | END 2023-11-03 12:38 | disposition home or self-care (01) | LOC: RAD 12:37 | PROVIDERS: ATTEND Urology | DX: E11.22 Type 2 diabetes mellitus with diabetic chronic kidney disease (principal); N18.9 Chronic kidney disease, unspecified; N20.0 Calculus of kidney; Q62.5 Duplication of ureter; M61.9 Calcification and ossification of muscle, unspecified; Z90.5 Acquired absence of kidney | CPT/HCPCS: 74018 ==

== ENCOUNTER 2024-01-02 13:50 | Outpatient (CLI) | payer MEDICARE ==
[2024-01-02 15:32] LABS: Hematocrit 37.9 % (34.9-44.5); Hemoglobin 12.3 g/dL (12.0-15.5); Mean Corpuscular HGB CONC 32.5 g/dL (32.0-36.0); Mean Corpuscular Hemoglobin 28.6 pg (27.0-33.0); Mean Corpuscular Volume 88.1 fl (81.6-98.3); Mean Platelet Volume 9.6 fl (7.4-10.4); Platelet Count 256 10x3/uL (150-450); RBC Distribution Width 12.9 % (11.5-14.5); White Blood Cell (WBC) Count 7.2 10x3/uL (3.5-10.5)
[2024-01-02 16:00] LABS: PTT 27.4 sec (22.0-33.0); Prothrombin Time 10.5 sec (9.5-12.1)
[2024-01-02 16:04] LABS: Anion Gap 17 mmol/L (10-20); BUN (Urea Nitrogen) 44 mg/dL (9.8-20.1); Calc. Creatinine Clearance 0 mL/min (70-130); Calcium 9.7 mg/dL (7.8-10.44); Carbon Dioxide 23 mmol/L (23-31); Chloride 104 mmol/L (98-107); Estimated GFR 31; Glucose 107 mg/dL (83-110); Potassium 4.8 mmol/L (3.5-5.1); Sodium 139 mmol/L (136-145)
== END 2024-01-02 13:51 | disposition home or self-care (01) ==
LOC: LABBT 13:50
PROVIDERS: ATTEND Urology
DX: Z01.818 Encounter for other preprocedural examination (principal)
CPT/HCPCS: 80048; 85027; 85610; 85730; 93005; 93010

== ENCOUNTER 2024-07-16 14:12 | Outpatient (CLI) | payer MEDICARE | END 2024-07-16 14:13 | disposition home or self-care (01) | LOC: ULT 14:12 | PROVIDERS: ATTEND Urology | DX: N18.9 Chronic kidney disease, unspecified (principal); N20.0 Calculus of kidney; Z85.528 Personal history of other malignant neoplasm of kidney | CPT/HCPCS: 76770 ==